=== PATIENT | female | born 2000 | race Caucasian/White ===

== ENCOUNTER 2024-04-07 07:38 | Emergency (ER) | payer MEDICAID ==
[~2024-04-07] VITALS: Ht 170.2 cm; Wt 52.3 kg
[2024-04-07 07:44] VITALS: TEMP 97.8
[2024-04-07 07:45] VITALS: BP 98/60; PULSE 67; RESP 16; O2SAT 99
[2024-04-07] MEDS: LIDOCAINE 5% TRANSDERMAL PATCH TD ONE (08:07)
[2024-04-07] MEDS: IBUPROFEN 600 MG TABLET PO ONE (08:08)
[2024-04-07] MEDS: METHOCARBAMOL 500 MG TABLET PO ONE (08:30)
[2024-04-07] MEDS ORDERED: METH-659 PO (09:47)
[2024-04-07] MEDS ORDERED: IBUP-1492 PO (09:47)
[2024-04-07] MEDS ORDERED: LIDO700A15 TP (09:47)
== END 2024-04-07 10:24 | disposition home or self-care (01) ==
LOC: EMS 07:43
DX: S30.0XXA Contusion of lower back and pelvis, initial encounter (principal); X58.XXXA Exposure to other specified factors, initial encounter; Y93.89 Activity, other specified; Y92.410 Unspecified street and highway as the place of occurrence of the external cause; Y99.8 Other external cause status
CPT/HCPCS: 72131; 84702; 99284